=== PATIENT | male | born 1955 | race Two or more races ===

== ENCOUNTER 2021-03-04 21:03 | Emergency (ER) | payer MEDICARE, OTHER ==
[~2021-03-04] VITALS: Ht 180.3 cm; Wt 82.0 kg
[2021-03-04 23:57] VITALS: BP 129/64
[2021-03-05] MEDS ORDERED: ASPIRIN 325MG EC TABLET PO ONE
== END 2021-03-05 00:08 | disposition home or self-care (01) ==
LOC: ER 21:03
DX: R07.2 Precordial pain (principal); M25.571 Pain in right ankle and joints of right foot; I10 Essential (primary) hypertension
CPT/HCPCS: 82962; 93005; 99283

== ENCOUNTER 2021-03-05 22:20 | Emergency (ER) | payer MEDICARE, OTHER ==
[~2021-03-05] VITALS: Ht 182.9 cm; Wt 81.0 kg
[2021-03-06 01:00] VITALS: BP 155/74
[2021-03-06] MEDS ORDERED: ACETAMINOPHEN 500MG TABLET PO ONE (01:00)
== END 2021-03-06 01:31 | disposition home or self-care (01) ==
LOC: ER 22:20
DX: M79.604 Pain in right leg (principal); I10 Essential (primary) hypertension; I45.10 Unspecified right bundle-branch block; R94.31 Abnormal electrocardiogram [ECG] [EKG]
CPT/HCPCS: 99282

== ENCOUNTER 2021-03-07 20:12 | Emergency (ER) | payer MEDICARE, OTHER ==
[~2021-03-07] VITALS: Ht 180.3 cm; Wt 82.0 kg
[2021-03-07 22:28] VITALS: BP 169/79
[2021-03-08] MEDS ORDERED: ACET-2708 PO (23:21)
== END 2021-03-07 23:45 | disposition left against medical advice (07) ==
LOC: ER 20:12
DX: M54.5 Low back pain (principal); Z53.21 Procedure and treatment not carried out due to patient leaving prior to being seen by health care provider

== ENCOUNTER 2021-03-08 20:57 | Emergency (ER) | payer MEDICARE, OTHER ==
[~2021-03-08] VITALS: Ht 180.3 cm; Wt 80.0 kg
[2021-03-08 21:26] VITALS: BP 139/66
[2021-03-08] MEDS ORDERED: IBUPROFEN 400MG TABLET PO STA (22:24)
[2021-03-08] MEDS ORDERED: IBUPROFEN 600MG TABLET PO STA (23:19)
[2021-03-08] MEDS ORDERED: ACET-2708 PO (23:21)
== END 2021-03-08 23:36 | disposition home or self-care (01) ==
LOC: ER 20:57
DX: M79.604 Pain in right leg (principal); G89.29 Other chronic pain; R07.89 Other chest pain; I45.2 Bifascicular block; I10 Essential (primary) hypertension; Z86.718 Personal history of other venous thrombosis and embolism; Z79.01 Long term (current) use of anticoagulants
CPT/HCPCS: 99282

== ENCOUNTER 2021-03-20 20:15 | Emergency (ER) | payer MEDICARE, OTHER ==
[~2021-03-20] VITALS: Ht 177.8 cm; Wt 85.0 kg
[~2021-03-20 20:15] MED LIST: ACET-2708 PO
[2021-03-21 01:12] LABS: BASOPHILS % 0.7 % (0.0-2.0); EOSINOPHILS % 3.7 % (0.0-5.0); HEMATOCRIT. 35.6 % (42.0-52.0); HEMOGLOBIN. 11.8 g/dL (14.0-18.0); LYMPHOCYTES % 23.4 % (20.0-50.0); MEAN CORPUSCULAR HEMOGLOBIN 32.8 pg (28.0-32.0); MEAN CORPUSCULAR VOLUME 98.7 fL (80.0-94.0); MEAN PLATELET VOLUME 8.5 fl (7.4-10.4); MONOCYTES % 9.1 % (2.0-8.0); NEUTROPHILS % 63.1 % (40.0-76.0); PLATELET 173 x1000/uL (130-400); RED BLOOD CELL COUNT 3.61 mill/uL (4.7-6.1); RED CELL DISTRIBUTION WIDTH 15.3 % (11.6-14.6)
[2021-03-21 01:19] LABS: CHLORIDE 114 mEq/L (98-107)
[2021-03-21 02:00] VITALS: BP 135/82
== END 2021-03-21 02:10 | disposition home or self-care (01) ==
LOC: ER 20:15
DX: R07.89 Other chest pain (principal)
CPT/HCPCS: 36415; 71045; 80053; 83880; 84484; 85025; 93005; 99285

== ENCOUNTER 2021-03-24 18:19 | Emergency (ER) | payer MEDICARE, OTHER ==
[~2021-03-24] VITALS: Ht 180.3 cm; Wt 98.0 kg
[2021-03-24 21:26] LABS: BASOPHILS % 0.6 % (0.0-2.0); EOSINOPHILS % 3.3 % (0.0-5.0); HEMATOCRIT. 35.3 % (42.0-52.0); HEMOGLOBIN. 11.5 g/dL (14.0-18.0); LYMPHOCYTES % 25.6 % (20.0-50.0); MEAN CORPUSCULAR HEMOGLOBIN 33.2 pg (28.0-32.0); MEAN CORPUSCULAR VOLUME 101.5 fL (80.0-94.0); MEAN PLATELET VOLUME 7.8 fl (7.4-10.4); MONOCYTES % 11.1 % (2.0-8.0); NEUTROPHILS % 59.4 % (40.0-76.0); PLATELET 180 x1000/uL (130-400); RED BLOOD CELL COUNT 3.48 mill/uL (4.7-6.1); RED CELL DISTRIBUTION WIDTH 15.8 % (11.6-14.6)
[2021-03-24 21:31] LABS: CHLORIDE 109 mEq/L (98-107)
[2021-03-24 23:21] LABS: *AMPHETAMINES SCREEN URINE NEGATIVE (NEGATIVE); *BARBITURATES SCREEN URINE NEGATIVE (NEGATIVE)
[2021-03-24 23:22] LABS: *BENZODIAZEPINES SCREEN URINE NEGATIVE (NEGATIVE); *COCAINE SCREEN URINE NEGATIVE (NEGATIVE); CANNABINOID URINE SCREEN NEGATIVE (NEGATIVE); METHADONE URINE SCREEN NEGATIVE (NEGATIVE); OPIATES URINE SCREEN NEGATIVE (NEGATIVE); PHENCYCLIDINE URINE SCREEN PRESUMTIVE POSITIVE (NEGATIVE)
[2021-03-25] MEDS: ENOXAPARIN 100MG/ML SYR SUBCUT ONE ×2 (00:57)
[2021-03-25] MEDS ORDERED: IOHEXOL-350 100 ML BOTTLE ONE (02:33)
[2021-03-25] MEDS ORDERED: FURO-152 MT (02:53)
[2021-03-25 03:20] VITALS: BP 129/78
== END 2021-03-25 03:39 | disposition home or self-care (01) ==
LOC: ER 18:19
DX: R07.89 Other chest pain (principal); R60.0 Localized edema; I10 Essential (primary) hypertension; F17.290 Nicotine dependence, other tobacco product, uncomplicated
CPT/HCPCS: 36415; 71045; 71275; 80053; 80305; 82962; 83690; 83880; 84484; 85025; 93005; 93970; 99285; J1650; Q9967; Z7610

== ENCOUNTER 2021-03-25 22:05 | Emergency (ER) | payer MEDICARE, OTHER ==
[~2021-03-25] VITALS: Ht 182.9 cm; Wt 84.0 kg
[~2021-03-25 22:05] MED LIST changes: +FURO-152 MT
[2021-03-25] MEDS ORDERED: ACETAMINOPHEN 325MG TABLET PO ONE (22:30)
[2021-03-25 23:39] LABS: BASOPHILS % 0.6 % (0.0-2.0); EOSINOPHILS % 3.8 % (0.0-5.0); HEMATOCRIT. 36.3 % (42.0-52.0); LYMPHOCYTES % 25.1 % (20.0-50.0); MEAN CORPUSCULAR HEMOGLOBIN 33.1 pg (28.0-32.0); MEAN PLATELET VOLUME 8.2 fl (7.4-10.4); MONOCYTES % 9.7 % (2.0-8.0); NEUTROPHILS % 60.8 % (40.0-76.0); PLATELET 179 x1000/uL (130-400); RED BLOOD CELL COUNT 3.63 mill/uL (4.7-6.1); RED CELL DISTRIBUTION WIDTH 15.8 % (11.6-14.6)
[2021-03-25 23:45] LABS: CHLORIDE 109 mEq/L (98-107)
[2021-03-26 00:36] VITALS: BP 147/69
== END 2021-03-26 00:41 | disposition home or self-care (01) ==
LOC: ER 22:05
DX: R07.89 Other chest pain (principal); M79.89 Other specified soft tissue disorders; M25.579 Pain in unspecified ankle and joints of unspecified foot; I44.4 Left anterior fascicular block; I11.0 Hypertensive heart disease with heart failure; I50.9 Heart failure, unspecified
CPT/HCPCS: 36415; 80048; 84484; 85025; 93005; 99284